=== PATIENT | female | born 1950 | race Caucasian/White ===

== ENCOUNTER 2019-08-25 04:44 | Inpatient (IN) ==
[2019-08-18 12:31] LABS: Basophils # (Auto) 0.06 K/mcL (0.00-0.30); Basophils % (Auto) 1.3 % (0.0-2.0); Eosinophils # (Auto) 0.07 K/mcL (0.00-0.70); Eosinophils % (Auto) 1.5 % (0.0-7.0); Granulocytes % (Auto) 44.8 % (38.0-78.0); Hematocrit 39.4 % (34.1-44.9); Hemoglobin 12.9 g/dL (11.2-15.7); Lymphocytes # (Auto) 2.03 K/mcL (1.50-4.80); Lymphocytes % (Auto) 43.8 % (15.5-49.0); Mean Cell Volume 94.7 fL (80.0-100.0); Mean Corpuscular HGB Conc 32.7 g/dL (31.0-36.0); Mean Platelet Volume 10.8 fL (7.4-10.4); Monocytes % (Auto) 8.6 % (1.0-12.0); Platelet Count 241 K/mcL (140-440); RBC 4.16 M/mcL (3.59-5.38); Red Cell Distribution Width 12.7 % (11.5-14.5); WBC 4.6 K/mcL (4.50-11.00)
[2019-08-18 12:49] LABS: INR 0.9 (0.9-1.1); Prothrombin Time 12.3 sec (11.9-14.5)
[2019-08-18 12:54] LABS: Blood Urea Nitrogen 16 mg/dl (8-23); Calcium 9.2 mg/dl (8.6-10.4); Carbon Dioxide 24 mmol/L (22-30); Chloride 102 mmol/L (96-108); Glomerular Filtration Rate 94; Glucose 76 mg/dL (70-105)
[2019-08-18 13:01] LABS: Appearance,Urine CLEAR; Bilirubin,Urine NEG (NEG); Color,Urine STRAW; Culture Indicated,Urine NO; Glucose,Urine (UA) NEGATIVE (NEG); Ketones,Urine NEG (NEG); Leukocyte Esterase,Urine NEG /uL (NEG); Nitrate,Urine NEG (NEG); Protein,Urine NEG (NEG); Specific Gravity,Urine 1.008 (1.000-1.035); Urine Blood NEG mg/dL (<0.03); Urobilinogen,Urine NEG (NEG)
[2019-08-25] MEDS ORDERED: SCOPOLAMINE 1 PATCH PATCH TOPICAL PRN (05:00)
[2019-08-25] MEDS ORDERED: IPRATROPIUM/ALBUTEROL 3 ML AMPUL.NEB NEB PRN ×2 (05:00→08:36)
[2019-08-25] MEDS ORDERED: CELECOXIB 200 MG CAPSULE PO SCH (06:00)
[2019-08-25] MEDS ORDERED: oxyCODONE 10 MG TAB.ER.12H PO SCH (06:00)
[2019-08-25] MEDS ORDERED: 0.9 % SODIUM CHLORIDE 9 ML, KETOROLAC 30 MG, ROPIVACAINE HCL/PF 49.5 ML, EPINEPHrine 0.... IJ SCH (06:00)
[2019-08-25] MEDS ORDERED: PREGABALIN 75 MG CAPSULE PO SCH (06:00)
[2019-08-25] MEDS ORDERED: ceFAZolin 2 GM in DEXTROSE 5% IN WATER 50 ML IV SCH (06:00)
[2019-08-25] MEDS ORDERED: GENTAMICIN SULFATE 800 MG/20 ML VIAL IR ONE (07:10)
[2019-08-25] MEDS ORDERED: ONDANSETRON 4 MG/2 ML VIAL IV ONE (07:30)
[2019-08-25] MEDS ORDERED: DEXAMETHASONE 10 MG/ML VIAL IV ONE (07:30)
[2019-08-25] MEDS ORDERED: ePHEDrine 50 MG/ML AMPUL IV ONE (07:30)
[2019-08-25] MEDS ORDERED: TRANEXAMIC ACID 1,000 MG/10 ML VIAL IV ONE ×2 (07:30→08:57)
[2019-08-25] MEDS ORDERED: KETAMINE 100 MG/ML ML IV ONE (07:30)
[2019-08-25] MEDS ORDERED: ROPIVACAINE HCL/PF 20 ML VIAL IJ ONE (07:30)
[2019-08-25] MEDS ORDERED: LIDOCAINE HCL/PF 100 MG/5 ML SYRINGE IV ONE (07:30)
[2019-08-25] MEDS ORDERED: PHENYLEPHRINE 10 MG/ML VIAL IV ONE (07:30)
[2019-08-25] MEDS ORDERED: PROMETHAZINE 25 MG/ML VIAL IV PRN ×2 (08:36→19:13)
[2019-08-25] MEDS ORDERED: FLUMAZENIL 0.1 MG/ML ML IV PRN (08:36)
[2019-08-25] MEDS ORDERED: NALOXONE HCL 0.4 MG/ML VIAL IV PRN (08:36)
[2019-08-25] MEDS ORDERED: ONDANSETRON 4 MG/2 ML VIAL IV PRN (08:36)
[2019-08-25] MEDS ORDERED: MEPERIDINE 25 MG/ML SYRINGE IV PRN (08:36)
[2019-08-25] MEDS ORDERED: METOPROLOL TARTRATE 5 MG/5 ML VIAL IV PRN (08:36)
[2019-08-25] MEDS ORDERED: ATROPINE SULFATE 0.4 MG/ML VIAL IV PRN (08:36)
[2019-08-25] MEDS ORDERED: diphenhydrAMINE 50 MG/ML VIAL IV PRN (08:36)
[2019-08-25] MEDS ORDERED: METHOCARBAMOL 1,000 MG/10 ML VIAL IV PRN (08:36)
[2019-08-25] MEDS ORDERED: fentaNYL 100 MCG/2 ML VIAL IV PRN (08:36)
[2019-08-25] MEDS ORDERED: ePHEDrine 50 MG/ML AMPUL IV PRN (08:36)
[2019-08-25] MEDS ORDERED: LACTATED RINGERS 1,000 ML IV SCH (08:45)
[2019-08-25] MEDS ORDERED: LORazepam 2 MG/ML VIAL IV ONE (08:53)
--- NOTE | 2019-08-25 08:55 | Brief Operative Note ---
Date of procedure: 08/25/19 Pre-op diagnosis: left knee osteoarthritis Post-op diagnosis: same Procedure: left total knee arthroplasty Grafts/Implants: Yes Anesthesia: spinal Complications: none Surgeon: Kali Barber In Class Special Education Teacher: Joe Ba Estimated blood loss (cc): 150 Tourniquet Time (Minutes): 51 Specimens Removed/Pathology: none sent Condition: stable Disposition: PACU
--- NOTE | 2019-08-25 08:56 | Discharge Summary ---
Ortho Discharge - TKA - Patient Instructions Diet: Regular Diet Activity: ambulate with assistive device, weight bearing as tolerated Total Knee Protocol: For Total Knee: Start ROM DEDE with stationary bike or rocking chair. Work on gaining full extension of knee. Posterior dislocation precautions provided. Hip abductor strengthening and gait training instructions provided. Apply Cryocuff as instructed. Dressing Care: May shower in 2 days - Follow Up Plan Follow Up Appointments: Zoila Laughlin PA-C [Physician [facility] Trimmer] - 09/09/19 11:00 am Disposition: Xfer SNF Prognosis: Good Rehab Potential: Good I certify that the patient requires SNF services: Yes Overall status at discharge: patient is progressing back to baseline
[2019-08-25] MEDS ORDERED: BENZOCAINE/MENTHOL 1 LOZENGE PO PRN (08:57)
[2019-08-25] MEDS ORDERED: BISACODYL 10 MG SUPP.RECT PR PRN (08:57)
[2019-08-25] MEDS ORDERED: ACETAMINOPHEN 325 MG TABLET PO PRN (08:57)
[2019-08-25] MEDS ORDERED: POLYETHYLENE GLYCOL 3350 17 GM PACKET PO PRN (08:57)
[2019-08-25] MEDS ORDERED: FLEETS ADULT ENEMA PR PRN (08:57)
[2019-08-25] MEDS ORDERED: MAGNESIUM HYDROXIDE 30 ML ORAL.SUSP PO PRN (08:57)
[2019-08-25] MEDS ORDERED: DOCUSATE SODIUM 100 MG CAPSULE PO SCH (09:00)
[2019-08-25] MEDS ORDERED: ACETAMINOPHEN 800 MG/80 ML BOTTLE IV ONE (09:15)
--- NOTE | 2019-08-25 09:30 | Operative Note ---
DATE OF OPERATION: 08/25/2019 PREOPERATIVE DIAGNOSIS: Degenerative joint disease, left knee. POSTOPERATIVE DIAGNOSIS: Degenerative joint disease, left knee. PROCEDURE: Left total knee arthroplasty. SURGEON: Destini Barber M.D. EHS ENGINEER SURGEON: Joe Ba PA-C. The PA's assistance was required for the safe and efficient completion of the entire case. This provider's expertise and technical skill were required throughout the case. The PA assisted with preoperative coordination, intraoperative retraction, wound closure, dressing and splint application, as well as postoperative documentation and care coordination. ANESTHESIA: Spinal with LMA assist. ESTIMATED BLOOD LOSS: 150 mL. COMPLICATIONS: None noted. SPECIMENS REMOVED: None. DRAINS: None. TOURNIQUET TIME: 51 minutes at 300 mmHg. IMPLANTS: DePuy CMW2 gentamicin bone cement 20 grams x4; DePuy Attune femoral posterior stabilized size 5, left, cemented; DePuy Attune tibial insert fixed bearing posterior stabilized size 5, 5 mm AOX; DePuy Attune tibial base fixed bearing size 3, cemented; DePuy Attune patella medialized dome 35 mm, cemented AOX. INDICATIONS: The patient has had a long-standing history of worsening pain in the knee that has failed conservative treatment. Radiographs have confirmed advanced degenerative joint disease. After a long discussion about treatment options, the patient elected to proceed with a knee arthroplasty. The risks and benefits were discussed with the patient in detail including, but not limited to, the risks of anesthesia, problems with the heart or lungs related to anesthesia, infection, compromise or injury to the nerves and blood vessels, deep venous thrombosis, pulmonary embolism, pneumonia, continued pain after surgery, worsening pain or symptoms after surgery, swelling, loss of motion, instability, leg length discrepancy, and need for repeat surgery. DESCRIPTION OF PROCEDURE: The patient was seen in the pre-anesthesia waiting room where all questions were answered and the correct side and site were identified and marked. The patient was transferred to the operating room and administered the anesthetic and given pre-operative antibiotics. A time-out was then called. The extremity was prepped and draped, exsanguinated, and the tourniquet was inflated to 300 mmHg. A midline skin incision was then made with a standard medial parapatellar arthrotomy. Debridement of the menisci, ACL, and PCL was performed followed by balancing releases in the medial lateral plane. We then established intramedullary access to both the femur and tibia in a standard fashion. The femoral guide ryne was initially placed with the distal femoral guide, pinned into place, and the distal femoral cut was performed and checked with a flat plate. We then turned our attention to the tibia. The intramedullary guide was placed with the proximal tibial cutting block. The block was appropriately positioned off the affected side, varus and valgus was checked with the extra-medullary guide, and the block was pinned into place. The proximal tibial cut was performed and the tibia was prepared for the tibial implant with appropriate rotation. The tibia, femur, and posterior compartment were debrided of osteophytes, loose bodies, and meniscal fragments We then used the gap balancing technique to balance extension with the first two cuts and good balancing was obtained with a 10 millimeter gap block. We turned our attention back to the femur and used the referencing block and implant to size appropriately. Using the gap balancing technique for the flexion space we set our rotation of the femur off the tibial cut. Anesthesia gave the patient 1 gram of Tranexamic Acid via an intravenous route. We placed the 4 in 1 cutting block and made anterior, posterior, and chamfer cuts. Box plasty cuts were then made in a standard fashion for the posterior stabilized prosthesis. We then completed osteophyte release and posterior capsule release from the posterior compartment. Trials were placed and we chose the polyethylene insert thickness that provided the best stability in all planes. With the trials in place, we did a measured resection for a resurfacing patella. We sized the patella and placed the patella trial and performed a lateral facetectomy with the saw and rongeur. Good tracking was obtained. We removed all trials, irrigated and dried all cut surfaces. We cemented the components into place including tibia, femur and patella. We placed a trial liner and held the knee in full extension with the patella compressed while the cement cured. We then removed all excess cement and placed the final polyethylene tibiofemoral component. Irrigation with 3 liters of antibiotic saline was then performed using jet-lavage. We let the tourniquet down and coagulated bleeding vessels. We injected a 100 cubic centimeter volume including Ropivacaine 49.25 cubic centimeters at 5 milligrams per cubic centimeter, Ketorolac 30 milligrams, and Epinephrine 0.5 milligrams into 100 cubic centimeters volume of normal saline. We closed the retinaculum with #2 Stratafix and 0 Vicryl. We closed the subcutaneous tissue and skin in layers out to Dermabond on the skin. A sterile pressure dressing was applied. All needle and sponge counts were correct. The patient was transferred to the recovery room in stable condition. LANA:liat Job ID: [id number] Doc ID: [id number] Destini Barber MD
--- NOTE | 2019-08-25 10:10 | XRay Report ---
CLINICAL INFORMATION: Post-Op Total Knee COMPARISON: None. FINDINGS: Total knee prostheses is anatomically aligned. No osseous abnormality. Periarticular gas and soft tissue swelling seen. IMPRESSION: Negative Interpreted and Authenticated by: Kali Savage 08/25/19
[2019-08-25] MEDS: ASPIRIN 81 MG TAB.CHEW PO SCH ×2 (10:42→21:00)
[2019-08-25] MEDS: DOCUSATE SODIUM 100 MG CAPSULE PO SCH ×2 (10:42→21:00)
[2019-08-25] MEDS: PSYLLIUM HUSK 6 GM PACKET PO SCH (10:42)
[2019-08-25] MEDS: LACTATED RINGERS 1,000 ML IV SCH ×4 (10:43→19:33)
--- NOTE | 2019-08-25 11:37 | Orthopedic Progress Note ---
Subjective Patient information: Note initiated : 08/25/19 at 11:33 am Service Date, if different from initiated Date: [] Patient: Adri Chacko 69 y/o F admitted on 08/25/19 for Left Total Knee Arthroplasty. Chief Complaint: [] Objective Vital signs: Vital Signs Temp Pulse Resp BP Pulse Ox 08/25/19 09:56 97.0 F 76 22 143/56 96 08/25/19 09:41 76 17 135/59 96 08/25/19 09:26 74 16 145/60 95 08/25/19 09:21 93 H 17 145/58 93 08/25/19 09:16 100 H 20 150/63 97 08/25/19 09:11 97.8 F 96 H 16 145/64 97 08/25/19 04:49 97.5 F 69 22 135/62 97 Intake and Output 08/24/19 08/25/19 08/25/19 21:59 05:59 13:59 Intake Total 1880 Output Total 1050 Balance 830 Intake: IV 80 IV - Manual Only 1800 Output: Urine Catheter Amount 1000 Estimated Blood Loss 50 Other: Urine Appearance Clear Urine Color Pale Urine Odor Normal Weight 121 lb 5 oz Intake & Output: Intake & Output 08/24/19 08/25/19 08/25/19 21:59 05:59 13:59 Intake Total 1880 Output Total 1050 Balance 830 Weight 121 lb 5 oz Intake: IV 80 IV - Manual Only 1800 Output: Urine Catheter Amount 1000 Estimated Blood Loss 50 Other: Urine Appearance Clear Urine Color Pale Urine Odor Normal - Labs CBC & BMP: 08/18/19 10:01 08/18/19 10:00 Labs: Orthopedic Labs 08/18/19 10:01 PT 12.3 INR 0.9 08/18/19 10:01 Hgb 12.9 Hct 39.4 Assessment and Plan (1) Knee osteoarthritis Adri just returned to the floor after tka. Spinal is still working and she is comfortable but drowsy. It is medically recommended that this patient remains as an inpatient post total knee arthroplasty due to her significant medical comorbidities. Her RA, Cervical / Lumbar instability, and joint disease create a significant challenge in self-care and mobility. She has no family or relatives to assist her post-op and will need inpatient rehab at a detention facility level post-acute care. She will require extensive intervention with PT/OT at discharge to prepare her for self-care once discharged to home. Status: Acute
[2019-08-25] MEDS: KETOROLAC 15 MG/ML VIAL IV SCH ×2 (11:53→17:22)
[2019-08-25] MEDS: ceFAZolin 1 GM VIAL IV SCH ×2 (14:53→23:13)
[2019-08-25] MEDS: 0.9 % SODIUM CHLORIDE 10 ML SYRINGE IV SCH ×2 (14:56→21:02)
[2019-08-25] MEDS: ONDANSETRON 4 MG/2 ML VIAL IV PRN (17:28)
[2019-08-25] MEDS ORDERED: PROMETHAZINE 25 MG/ML VIAL ONE (19:20)
[2019-08-25] MEDS: SENNOSIDES 1 TABLET PO SCH (21:00)
[2019-08-25] MEDS: HYDROcodone/APAP 10/325MG TABLET PO PRN (23:14)
[2019-08-25] MEDS: LORazepam 2 MG/ML VIAL IV PRN (23:14)
[2019-08-26] MEDS: LACTATED RINGERS 1,000 ML IV SCH ×4 (03:56→23:28)
[2019-08-26] MEDS: HYDROcodone/APAP 10/325MG TABLET PO PRN ×4 (04:52→21:12)
[2019-08-26] MEDS: 0.9 % SODIUM CHLORIDE 10 ML SYRINGE IV SCH ×3 (05:51→21:13)
[2019-08-26] MEDS: KETOROLAC 15 MG/ML VIAL IV SCH ×4 (05:52→17:47)
[2019-08-26 06:58] LABS: Hematocrit 31.1 % (34.1-44.9); Hemoglobin 10.2 g/dL (11.2-15.7)
--- NOTE | 2019-08-26 07:35 | Orthopedic Progress Note ---
Orthopedics - Auxillary Note - Subjective Patient Information: Note initiated : 08/26/19 at 7:32 am Service Date, if different from initiated Date: [] Patient: Adri Chacko 69 y/o F admitted on 08/25/19 for Left Total Knee Arthroplasty. Chief Complaint: L knee moderate pain. Bandages c/d/i nvi-distal Vital Signs Temp Pulse Resp BP Pulse Ox 08/26/19 04:05 98.3 F 68 14 125/57 99 08/25/19 23:31 97.8 F 64 16 127/58 94 08/25/19 19:17 97.6 F 77 14 147/70 97 08/25/19 16:04 61 08/25/19 16:00 97.4 F 74 16 138/60 98 08/25/19 11:48 61 130/56 97 08/25/19 11:32 61 145/64 99 08/25/19 11:18 60 136/66 100 08/25/19 11:03 60 134/64 100 08/25/19 10:47 63 137/64 98 08/25/19 10:33 73 123/60 100 08/25/19 10:18 63 135/60 99 08/25/19 10:02 75 129/68 99 08/25/19 09:56 97.0 F 76 22 143/56 96 08/25/19 09:41 76 17 135/59 96 08/25/19 09:26 74 16 145/60 95 08/25/19 09:21 93 H 17 145/58 93 08/25/19 09:16 100 H 20 150/63 97 08/25/19 09:11 97.8 F 96 H 16 145/64 97 Intake and Output 08/25/19 08/26/19 08/26/19 21:59 05:59 13:59 Intake Total 3561 1300 Output Total 1750 2450 Balance 1811 -1150 Intake: IV 981 1000 Lactated Ringers 1,000 ml @ 526 281 9014 mls/hr IV [facility] Rx#: [id number] Oral 2580 300 Output: Void Amount 1750 2450 Other: Meal Dinner Percent of Meal Consumed 25% Feeding Ability Independent Urine Appearance Clear Clear Urine Color Bright Yellow Bright Yellow Urine Odor Normal Normal Weight 129 lb Laboratory Results - last 24 hr 08/26/19 06:00 Hgb 10.2 L Hct 31.1 L s/p L TKA-stable -Mobilize with PT. -Discharge to SNF 1-2 days. Pt requires SNF discharge due to co-morbidities including severe RA, and not having help at home, and being overall slow to progress.
[2019-08-26] MEDS: ONDANSETRON 4 MG/2 ML VIAL IV PRN (08:43)
[2019-08-26] MEDS: ASPIRIN 81 MG TAB.CHEW PO SCH ×2 (08:43→21:13)
[2019-08-26] MEDS: DOCUSATE SODIUM 100 MG CAPSULE PO SCH ×2 (08:43→21:12)
[2019-08-26] MEDS: LEVOTHYROXINE 75 MCG TABLET PO SCH (08:43)
[2019-08-26] MEDS: PSYLLIUM HUSK 6 GM PACKET PO SCH (08:43)
[2019-08-26] MEDS: PANTOPRAZOLE 40 MG TABLET PO SCH (08:43)
[2019-08-26] MEDS: METHOCARBAMOL 750 MG TABLET PO PRN ×2 (11:19→19:01)
[2019-08-26] MEDS: LORazepam 2 MG/ML VIAL IV PRN (12:51)
[2019-08-26] MEDS: SENNOSIDES 1 TABLET PO SCH (21:13)
[2019-08-27] MEDS: KETOROLAC 15 MG/ML VIAL IV SCH ×2 (00:03→05:46)
[2019-08-27] MEDS: HYDROcodone/APAP 10/325MG TABLET PO PRN ×6 (00:44→18:37)
[2019-08-27] MEDS: METHOCARBAMOL 750 MG TABLET PO PRN ×3 (04:04→21:33)
[2019-08-27] MEDS: 0.9 % SODIUM CHLORIDE 10 ML SYRINGE IV SCH ×3 (05:47→21:38)
[2019-08-27 06:08] LABS: Hematocrit 31.2 % (34.1-44.9); Hemoglobin 10.2 g/dL (11.2-15.7)
--- NOTE | 2019-08-27 06:58 | Orthopedic Progress Note ---
Subjective Patient information: Note initiated : 08/27/19 at 6:56 am Service Date, if different from initiated Date: [] Patient: Adri Chacko 69 y/o F admitted on 08/25/19 for Left Total Knee Arthroplasty. Chief Complaint: [] Interval history: painful. slow to mobilize with physical therapy Objective Vital signs: Vital Signs Temp Pulse Resp BP Pulse Ox 08/27/19 03:50 97.2 F 76 16 136/63 96 08/26/19 23:52 97.8 F 74 12 138/62 99 08/26/19 19:10 99 08/26/19 18:52 98.1 F 71 12 144/65 99 08/26/19 16:53 97.8 F 69 16 145/63 97 08/26/19 12:16 97.7 F 70 16 143/63 97 08/26/19 12:00 97.7 F 70 16 143/63 08/26/19 07:43 97.6 F 63 16 111/56 97 Intake and Output 08/26/19 08/27/19 08/27/19 21:59 05:59 13:59 Intake Total 1400 800 Output Total 1600 2450 Balance -200 -1650 Intake: Oral 1400 800 Output: Void Amount 1600 2450 Other: Meal Dinner Percent of Meal Consumed 25% Feeding Ability Independent Urine Appearance Clear Clear Urine Color Pale Pale Straw Urine Odor Normal Normal Weight 128 lb 12.8 oz Intake & Output: Intake & Output 08/26/19 08/27/19 08/27/19 21:59 05:59 13:59 Intake Total 1400 800 Output Total 1600 2450 Balance -200 -1650 Weight 128 lb 12.8 oz Intake: Oral 1400 800 Output: Void Amount 1600 2450 Other: Meal Dinner Percent of Meal Consumed 25% Feeding Ability Independent Urine Appearance Clear Clear Urine Color Pale Pale Straw Urine Odor Normal Normal Incision: Yes healing Incision clean and dry: Yes Dressing: Yes clean, Yes dry, Yes intact Weight bearing status: full Neurological exam IM: Yes abnormal gait, Yes alert, Yes oriented X3, Yes motor sensory intact, Yes neurovascular intact Extremities exam IM: No calf tenderness, Yes joint swelling, Yes Foot pink and warm, Yes neurovascular intact - Labs CBC & BMP: 08/27/19 05:07 08/18/19 10:00 Labs: Orthopedic Labs 08/18/19 10:01 PT 12.3 INR 0.9 08/27/19 08/26/19 08/18/19 05:07 06:00 10:01 Hgb 10.2 L 10.2 L 12.9 Hct 31.2 L 31.1 L 39.4 Assessment and Plan (1) Knee osteoarthritis Assessment: pod 2 s/p left tka, painful and slow to mobilize Plan: PT pain control dvt prophylaxis d/c planning. It is medically recommended that this patient remains as an inpatient post total knee arthroplasty due to her significant medical comorbidities. Her RA, Cervical / Lumbar instability, and joint disease create a significant challenge in self-care and mobility. She has no family or relatives to assist her post-op and will need inpatient rehab [facility] a [facility] level post-acute care. She will require extensive intervention with PT/OT at discharge to prepare her for self-care once discharged to home. Status: Acute
[2019-08-27] MEDS: PANTOPRAZOLE 40 MG TABLET PO SCH (07:47)
[2019-08-27] MEDS: LEVOTHYROXINE 75 MCG TABLET PO SCH (07:47)
[2019-08-27] MEDS: DOCUSATE SODIUM 100 MG CAPSULE PO SCH ×2 (09:02→21:33)
[2019-08-27] MEDS: PSYLLIUM HUSK 6 GM PACKET PO SCH (09:03)
[2019-08-27] MEDS: ASPIRIN 81 MG TAB.CHEW PO SCH ×2 (09:03→21:33)
[2019-08-27] MEDS: LACTATED RINGERS 1,000 ML IV SCH ×2 (10:17→16:13)
[2019-08-27] MEDS: SENNOSIDES 1 TABLET PO SCH (21:33)
[2019-08-27] MEDS: ONDANSETRON 4 MG/2 ML VIAL IV PRN (21:38)
[2019-08-28] MEDS: HYDROcodone/APAP 10/325MG TABLET PO PRN ×4 (00:58→09:36)
[2019-08-28] MEDS: ONDANSETRON 4 MG/2 ML VIAL IV PRN (01:49)
[2019-08-28] MEDS: LACTATED RINGERS 1,000 ML IV SCH (02:09)
[2019-08-28] MEDS: 0.9 % SODIUM CHLORIDE 10 ML SYRINGE IV SCH (06:01)
[2019-08-28 06:33] LABS: Hematocrit 28.8 % (34.1-44.9); Hemoglobin 9.5 g/dL (11.2-15.7)
--- NOTE | 2019-08-28 06:48 | Orthopedic Progress Note ---
Subjective Patient information: Note initiated : 08/28/19 at 6:46 am Service Date, if different from initiated Date: [] Patient: Adri Chacko 69 y/o F admitted on 08/25/19 for Left Total Knee Arthroplasty. Chief Complaint: [] Interval history: doing ok. painful last night. still slow to mobilize Objective Vital signs: Vital Signs Temp Pulse Resp BP Pulse Ox 08/28/19 04:20 98 F 70 20 123/61 95 08/27/19 22:50 97.4 F 76 14 118/63 98 08/27/19 20:00 98 08/27/19 19:30 98.9 F 69 16 124/62 91 08/27/19 16:54 98.3 F 74 16 140/62 98 08/27/19 15:00 71 08/27/19 12:58 98.8 F 71 16 142/67 97 08/27/19 11:00 60 08/27/19 08:00 60 16 96 08/27/19 07:46 97.3 F 60 16 120/61 96 08/27/19 07:00 60 Intake and Output 08/27/19 08/28/19 08/28/19 21:59 05:59 13:59 Intake Total 1280 1250 Output Total 1700 1550 Balance -420 -300 Intake: Oral 1280 1250 Output: Void Amount 1700 1550 Other: Meal Dinner Percent of Meal Consumed 75% Urine Appearance Clear Clear Urine Color Pale Pale Straw Straw Urine Odor Normal Normal Weight 128 lb Intake & Output: Intake & Output 08/27/19 08/28/19 08/28/19 21:59 05:59 13:59 Intake Total 1280 1250 Output Total 1700 1550 Balance -420 -300 Weight 128 lb Intake: Oral 1280 1250 Output: Void Amount 1700 1550 Other: Meal Dinner Percent of Meal Consumed 75% Urine Appearance Clear Clear Urine Color Pale Pale Straw Straw Urine Odor Normal Normal Incision: Yes healing Incision clean and dry: Yes Dressing: Yes clean, Yes dry, Yes intact Weight bearing status: full Neurological exam IM: Yes abnormal gait, Yes alert, Yes oriented X3, Yes motor sensory intact, Yes neurovascular intact Extremities exam IM: No calf tenderness, Yes Foot pink and warm, Yes neurovascular intact - Labs CBC & BMP: 08/28/19 05:08 08/18/19 10:00 Labs: Orthopedic Labs 08/18/19 10:01 PT 12.3 INR 0.9 08/28/19 08/27/19 08/26/19 05:08 05:07 06:00 Hgb 9.5 L 10.2 L 10.2 L Hct 28.8 L 31.2 L 31.1 L 08/18/19 10:01 Hgb 12.9 Hct 39.4 Assessment and Plan (1) Knee osteoarthritis Assessment: pod 3 s/p left tka, painful and slow to mobilize Plan: PT pain control dvt prophylaxis d/c planning. To rehab center today. Status: Acute
[2019-08-28] MEDS: LEVOTHYROXINE 75 MCG TABLET PO SCH (07:34)
[2019-08-28] MEDS: PANTOPRAZOLE 40 MG TABLET PO SCH (07:34)
[2019-08-28] MEDS: PSYLLIUM HUSK 6 GM PACKET PO SCH (08:25)
[2019-08-28] MEDS: DOCUSATE SODIUM 100 MG CAPSULE PO SCH (08:25)
[2019-08-28] MEDS: ASPIRIN 81 MG TAB.CHEW PO SCH (08:25)
== END 2019-08-28 09:57 | DRG 470 ==
LOC: MEDSUR 04:44
PROVIDERS: ADMIT Orthopaedic Surgery Sports Medicine; ATTEND Orthopaedic Surgery Sports Medicine